=== PATIENT | male | born 1995 | race American Indian/Alaskan Native ===

== ENCOUNTER 2017-02-22 10:33 | Emergency (ER) | payer MEDICAID, OTHER ==
--- NOTE | 2017-02-22 13:09 | XRay Report ---
LEFT KNEE, 3 views: History: Left knee swelling. The bony architecture is intact without evidence of fracture or dislocation. A moderate joint effusion is identified on the lateral image. IMPRESSION: Joint effusion without bony abnormality. If internal derangement is suspected, MRI left knee without contrast is recommended.
[2017-02-22] MEDS ORDERED: TORADOL IM ONE (15:13)
--- NOTE | 2017-02-22 15:20 | Emergency Department Report ---
ED Lower Extremity HPI - General Chief Complaint: Extremity Injury, Lower Stated Complaint: LEFT KNEE INJURY,SWOLLEN Source: patient Mode of arrival: Ambulatory Limitations: No Limitations - History of Present Illness Initial Comments: 21 y/o M presents today, stating that he was playing flag football yesterday and states that his knee inverted and the distal aspect of his leg everted. He states that he feels like his knee popped. He now admits to 9/10 in severity pain; swelling, and tingling. Pt denies any numbness, redness, or warmth of the skin. Pt denies any trauma to the head, LOC, or dizziness. Pt denies any previous hx of injury to the knee before. Pt states that pain increases with weight bearing and decreases with rest. Pt has not tried anything for the pain at this time. NKDA. SOLITARIO Complaint: knee injury (left knee) -: Sudden (yesterday) Injury: Knee: Left Type of Injury: inversion Place: street/outdoors Severity: severe Severity scale (0 -10): 9 Worsens With: weight bearing Context: other (playing flag football) Associated Symptoms: snap/pop sensation, swelling, tingling, able to partially bear weight - Related Data Home Medications Medication Instructions Recorded Confirmed Last Taken Lisdexamfetamine Dimesylate 70 mg PO QAM 04/15/13 05/12/14 Unknown [Vyvanse] Previous Rx's Medication Instructions Recorded Last Taken Type Naproxen [Naprosyn TAB] 500 mg PO BID #30 tablet 05/12/14 Unknown Rx Cyclobenzaprine HCl [Flexeril 5 MG 5 mg PO TID PRN #15 tab 02/22/17 Unknown Rx TAB] Ibuprofen [Motrin 600 MG tab] 600 mg PO Q8H PRN #15 tablet 02/22/17 Unknown Rx Allergies Allergy/AdvReac Type Severity Reaction Status Date / Time No Known Allergies Allergy Verified 02/22/17 11:38 ED Review of Systems ROS: Stated complaint: LEFT KNEE INJURY,SWOLLEN Other details as noted in HPI Constitutional: denies: chills, fever Eyes: denies: eye pain, eye discharge, vision change ENT: denies: ear pain, throat pain Respiratory: denies: cough, shortness of breath, wheezing Cardiovascular: denies: chest pain, palpitations Genitourinary: denies: urgency, dysuria Musculoskeletal: joint swelling, arthralgia, other (left knee pain, swelling, tingling- no numbness) Skin: other (reports to swelling) Neurological: denies: headache, weakness, paresthesias Psychiatric: denies: anxiety, depression ED Past Medical Hx - Past Medical History Previous Medical History?: No Additional medical history: ADHD - Surgical History Past Surgical History?: No - Social History Smoking Status: Never Smoker Substance Use Type: None - Medications Home Medications: Home Medications Medication Instructions Recorded Confirmed Last Taken Type Lisdexamfetamine Dimesylate 70 mg PO QAM 04/15/13 05/12/14 Unknown History [Vyvanse] Naproxen [Naprosyn TAB] 500 mg PO BID #30 tablet 05/12/14 Unknown Rx Cyclobenzaprine HCl [Flexeril 5 MG 5 mg PO TID PRN #15 tab 02/22/17 Unknown Rx TAB] Ibuprofen [Motrin 600 MG tab] 600 mg PO Q8H PRN #15 tablet 02/22/17 Unknown Rx ED Physical Exam - General Limitations: No Limitations General appearance: alert, in no apparent distress - Head Head exam: Present: atraumatic, normocephalic - Eye Eye exam: Present: normal appearance - ENT ENT exam: Present: mucous membranes moist - Respiratory Respiratory exam: Present: normal lung sounds bilaterally. Absent: respiratory distress - Cardiovascular Cardiovascular Exam: Present: regular rate, normal rhythm. Absent: systolic murmur, diastolic murmur, rubs, gallop - Extremities Exam Extremities exam: Present: other (there is Left knee swelling noted, TTP at the left knee medial and lateral to the knee and at the patella, varus and valgus movements both elicits pain, decreased full flexion of the knee, pulses and capillary refill was wnl, sensation was full ) - Expanded Lower Extremity Exam Left Hip exam: Present: normal inspection, full ROM Upper Leg exam: Present: normal inspection, full ROM Knee exam: Present: tenderness, swelling, effusion, pain/laxity with valgus, pain/laxity with varus Lower Leg exam: Present: normal inspection, full ROM Ankle exam: Present: normal inspection, full ROM Foot/Toe exam: Present: normal inspection, full ROM Neuro vascular tendon exam: Present: no vascular compromise - Back Exam Back exam: Present: normal inspection - Neurological Exam Neurological exam: Present: alert, oriented X3 - Psychiatric Psychiatric exam: Present: normal affect, normal mood ED Course Vital Signs 02/22/17 02/22/17 11:39 15:53 Temperature 98.4 F Pulse Rate 58 L 62 Respiratory 18 16 Rate Blood Pressure 143/84 Blood Pressure 132/78 [Left] O2 Sat by Pulse 99 99 Oximetry ED Lower Extremity MDM - Radiology Data Radiology results: report reviewed, image reviewed Left Knee XR: moderate joint effusion without bony abnormality. No evidence of fracture or dislocations. - Medical Decision Making Case was discussed with Dr. Mccabe, as I was suspecting a ligament injury from physical examination. However, he recommends that MRI will not show much for a recent injury for ligament issues. He recommends crutches and SANTOSH wrap at this time. With a follow-up with orthopedics within the week for reevaluation / further workup and imaging. I have explained this in detail to the patient today and explained the importance of prompt follow-up. Both father and son eport understanding and states they will follow-up. I have given pt toradol injection 30 mg here in the ED for the pain. I have encouraged RICE therapy, and given Ibuprofen and flexeril at home; with close orthopedics follow-up encouraged. Pt was discharged with his father by his side; alert and oriented and in no acute respiratory distress. Hemodynacmically and neurovascaulrly intact. He was given off from work for the next 3 days as he has the entire week off next week, he can follow-up with ortho during this week and gain further clearance from work from him. Critical care attestation.: If time is entered above; I have spent that time in minutes in the direct care of this critically ill patient, excluding procedure time. ED Disposition Clinical Impression: Left knee injury Qualifiers: Encounter type: initial encounter Qualified Code(s): S89.92XA - Unspecified injury of left lower leg, initial encounter Disposition: DC-01 TO HOME OR SELFCARE Is pt being admited?: No Does the pt Need Aspirin: No Condition: Stable Instructions: Knee Effusion (ED), Knee Pain (ED) Additional Instructions: Please do not take the muscle relaxant while driving or operating heavy machinery as it will make you drowsy. Apply the SANTOSH wrap and use the crutches. RICE= rest, ice, compress, and elevate the leg above the level of your heart. Please follow-up with orthopedics within 3-5 days. Follow-up with PCP within 1 week. Please return to the ED immediately with any acute worsening of your symptoms. Prescriptions: Cyclobenzaprine HCl [Flexeril 5 MG TAB] 5 mg PO TID PRN #15 tab PRN Reason: pain Ibuprofen [Motrin 600 MG tab] 600 mg PO Q8H PRN #15 tablet PRN Reason: Pain Referrals: PRIMARY CAREMD [Primary Care Provider] - 3-5 Days ADELINA NAQVI MD [Staff Physician] - 3-5 Days [facility] [Outside] - 3-5 Days [facility] [Outside] - 3-5 Days Forms: Accompanied Note, Work/School Release Form(ED)
[2017-02-22 15:54] VITALS: BP 132/78
== END 2017-02-22 15:53 | disposition home or self-care (01) ==
LOC: ED 10:33
DX: S89.92XA Unspecified injury of left lower leg, initial encounter (principal); F90.9 Attention-deficit hyperactivity disorder, unspecified type; X58.XXXA Exposure to other specified factors, initial encounter; Y93.89 Activity, other specified; Y92.89 Other specified places as the place of occurrence of the external cause; Y99.8 Other external cause status
CPT/HCPCS: 73562; 96372; 99283; J1885

== ENCOUNTER 2018-01-21 17:38 | Emergency (ER) | payer BC ==
[2018-01-21 19:04] VITALS: BP 136/88
[2018-01-22] MEDS ORDERED: MOTRIN PO ONE (01:31)
--- NOTE | 2018-01-22 01:51 | XRay Report ---
FINAL REPORT EXAM: XR KNEE 1-2V RT HISTORY: right knee swelling with pain COMPARISON: None available. FINDINGS: Two views the right knee obtained. Small suprapatellar effusion. Bony structures are intact. Joint spaces are preserved. No acute fracture dislocation. Mild soft tissue swelling along the infrapatellar region and medial margin of the right knee. IMPRESSION: No acute bony abnormality. Small suprapatellar effusion. Mild soft tissue swelling along the medial margin of the knee and infrapatellar region.
--- NOTE | 2018-01-22 02:53 | Emergency Department Report ---
ED Lower Extremity HPI - General Chief Complaint: Extremity Injury, Lower Stated Complaint: RIGHT KNEE PAIN Time Seen by Provider: 01/22/18 01:31 Source: patient Mode of arrival: Ambulatory Limitations: No Limitations - History of Present Illness Initial Comments: 22-year-old male comes to the emergency room reports her right knee injury. Patient reports that he was playing football when he is sprained and twisted his knee. Patient states that this started on Sunday about 1800. Patient has taken nothing for pain and reports that pain radiates down the knee. Patient has a past medical history of ADHD and sports related injuries. MD Complaint: knee injury (right) -: days(s) (2) Injury: Knee: Right (pain and swelling) Type of Injury: unknown Place: school Severity: severe Severity scale (0 -10): 8 Improves With: nothing Worsens With: movement Context: running Associated Symptoms: swelling. denies: snap/pop sensation, numbness Treatments Prior to Arrival: other (none) - Related Data Home Medications Medication Instructions Recorded Confirmed Last Taken Lisdexamfetamine Dimesylate 70 mg PO QAM 04/15/13 05/12/14 Unknown [Vyvanse] Previous Rx's Medication Instructions Recorded Last Taken Type Naproxen [Naprosyn TAB] 500 mg PO BID #30 tablet 05/12/14 Unknown Rx Cyclobenzaprine HCl [Flexeril 5 MG 5 mg PO TID PRN #15 tab 02/22/17 Unknown Rx TAB] Ibuprofen [Motrin 600 MG tab] 600 mg PO Q8H PRN #30 tablet 01/22/18 Unknown Rx Allergies Allergy/AdvReac Type Severity Reaction Status Date / Time No Known Allergies Allergy Verified 02/22/17 11:38 ED Review of Systems ROS: Stated complaint: RIGHT KNEE PAIN Other details as noted in HPI Comment: All other systems reviewed and negative Musculoskeletal: joint swelling (right knee), arthralgia (right knee) ED Past Medical Hx - Past Medical History Previous Medical History?: Yes Additional medical history: ADHD - Surgical History Past Surgical History?: No - Social History Smoking Status: Current Every Day Smoker Substance Use Type: Alcohol - Medications Home Medications: Home Medications Medication Instructions Recorded Confirmed Last Taken Type Lisdexamfetamine Dimesylate 70 mg PO QAM 04/15/13 05/12/14 Unknown History [Vyvanse] Naproxen [Naprosyn TAB] 500 mg PO BID #30 tablet 05/12/14 Unknown Rx Cyclobenzaprine HCl [Flexeril 5 MG 5 mg PO TID PRN #15 tab 02/22/17 Unknown Rx TAB] Ibuprofen [Motrin 600 MG tab] 600 mg PO Q8H PRN #30 tablet 01/22/18 Unknown Rx ED Physical Exam - General Limitations: No Limitations General appearance: alert, in no apparent distress - Expanded Lower Extremity Exam Right Knee exam: Present: tenderness, swelling, effusion. Absent: abrasion, laceration, ecchymosis, deformity, crepidus, erythema Lower Leg exam: Present: swelling. Absent: tenderness Ankle exam: Absent: normal inspection, full ROM, tenderness, swelling ED Course Vital Signs 01/21/18 19:01 Temperature 98.2 F Pulse Rate 77 Respiratory 16 Rate Blood Pressure 136/88 O2 Sat by Pulse 100 Oximetry ED Lower Extremity MDM - Radiology Data Radiology results: report reviewed FINAL REPORT EXAM: XR KNEE 1-2V RT HISTORY: right knee swelling with pain COMPARISON: None available. FINDINGS: Two views the right knee obtained. Small suprapatellar effusion. Bony structures are intact. Joint spaces are preserved. No acute fracture dislocation. Mild soft tissue swelling along the infrapatellar region and medial margin of the right knee. IMPRESSION: No acute bony abnormality. Small suprapatellar effusion. Mild soft tissue swelling along the medial margin of the knee and infrapatellar region. Transcribed By: LMA Dictated By: TOMER MEDINA MD Electronically Authenticated By: TOMER MEDINA MD Signed Date/Time: 01/22/18150 DD/ 0 TD/TT: 01/22/18150 - Medical Decision Making Patient has been evaluated with this provider fast track. Patient was given ibuprofen for pain management. X-ray of right knee shows a suprapatellar effusion We'll discharge patient on Motrin and a referral to orthopedics. Critical care attestation.: If time is entered above; I have spent that time in minutes in the direct care of this critically ill patient, excluding procedure time. ED Disposition Clinical Impression: Suprapatellar effusion of knee Disposition: DC-01 TO HOME OR SELFCARE Is pt being admited?: No Does the pt Need Aspirin: No Condition: Stable Instructions: Knee Effusion (ED) Additional Instructions: Please take pain medication as prescribed. Please wear knee brace and follow up with orthopedics in the next 2-3 days. I have listed their information below. Prescriptions: Ibuprofen [Motrin 600 MG tab] 600 mg PO Q8H PRN #30 tablet PRN Reason: Pain Referrals: PRIMARY CAREMD [Primary Care Provider] - 3-5 Days ALEE NAQVI MD [Referring] - 3-5 Days Forms: Work/School Release Form(ED), Accompanied Note
== END 2018-01-22 03:15 | disposition home or self-care (01) ==
LOC: ED 17:38
DX: M25.461 Effusion, right knee (principal); F90.9 Attention-deficit hyperactivity disorder, unspecified type; F17.200 Nicotine dependence, unspecified, uncomplicated
CPT/HCPCS: 99283